=== PATIENT | female | born 1990 | race African-American/Black ===

== ENCOUNTER 2017-08-10 20:16 | Emergency (ER) | payer OTHER ==
[~2017-08-10] VITALS: Ht 170.2 cm; Wt 77.1 kg
[~2017-08-10 20:16] MED LIST: IBUPROFEN 200200 M1 PO; MEDROL DOSPAK21 TA1 PO
[2017-08-10] MEDS ORDERED: NOHOMEMEDICATIONS (20:38)
[2017-08-10 22:43] LABS: ABSOLUTE NEUTROPHILS 3.4 thou/uL (1.4-8.2); BASOPHILS 0.9 % (0.0-2.0); EOSINOPHILS 4.8 % (0.0-3.0); HEMOGLOBIN 12.4 gm/dL (12.0-15.0); LYMPHOCYTES 29.9 % (24.0-44.0); MCH 30.8 pg (26.0-34.0); MCHC 34.5 g/dL (28.0-37.0); MCV 89.1 fL (80.0-100.0); PLATELET COUNT 170 thou/uL (150-400); POLYS 54.4 % (36.0-66.0); RBC 4.04 mil/uL (4.20-5.00); RDW 12.6 % (10.5-14.5); WBC 6.3 thou/uL (4.0-11.0)
[2017-08-10 22:50] LABS: CALCIUM 8.7 mg/dL (8.5-10.1); POTASSIUM 3.9 mmol/L (3.5-5.1)
[2017-08-10 23:32] LABS: URINE BILIRUBIN NEGATIVE (Negative); URINE BLOOD NEGATIVE (Negative); URINE CLARITY CLEAR; URINE COLOR YELLOW; URINE GLUCOSE-RANDOM* NEGATIVE (Negative); URINE KETONES TRACE (Negative); URINE NITRITE-REFLEX NEGATIVE (Negative); URINE PROTEIN (DIPSTICK) NEGATIVE (Negative); URINE SPECIFIC GRAVITY 1.025 (1.005-1.035)
[2017-08-10 23:35] LABS: URINE LEUKOCYTES-REFLEX TRACE (Negative)
[2017-08-11] MEDS ORDERED: MOBIC15 MG PO (00:35)
[2017-08-11 00:50] VITALS: BP 114/67
[2017-08-14 05:09] LABS: NEISSERIA GONORRHEA-PCR Negative (Negative)
== END 2017-08-11 00:50 | disposition home or self-care (01) ==
LOC: ER 20:16
PROVIDERS: Emergency Medicine
DX: N83.209 Unspecified ovarian cyst, unspecified side (principal); J45.909 Unspecified asthma, uncomplicated; Z91.013 Allergy to seafood; Z91.010 Allergy to peanuts

== ENCOUNTER 2020-07-11 08:26 | Emergency (ER) | payer BC, OTHER ==
[~2020-07-11] VITALS: Ht 170.2 cm; Wt 94.3 kg
[~2020-07-11 08:26] MED LIST changes: +MOBIC15 MG PO; +NOHOMEMEDICATIONS
[2020-07-11 10:07] LABS: ABSOLUTE NEUTROPHILS 5.3 thou/uL (1.4-8.2); BASOPHILS 0.5 % (0.0-2.0); EOSINOPHILS 0.9 % (0.0-3.0); HEMATOCRIT 36.3 % (37.0-47.0); HEMOGLOBIN 12.4 gm/dL (12.0-15.0); LYMPHOCYTES 19.9 % (24.0-44.0); MCH 30.2 pg (26.0-34.0); MCHC 34.1 g/dL (28.0-37.0); MCV 88.8 fL (80.0-100.0); MONOCYTES 8.2 % (1.0-8.0); PLATELET COUNT 183 thou/uL (150-400); POLYS 70.5 % (36.0-66.0); RBC 4.09 mil/uL (4.20-5.00); RDW 12.3 % (10.5-14.5); WBC 7.5 thou/uL (4.0-11.0)
[2020-07-11 10:14] LABS: CREATININE 0.8 mg/dL (0.6-1.0); POTASSIUM 3.8 mmol/L (3.5-5.1)
[2020-07-11 10:20] LABS: ALBUMIN 3.8 g/dL (3.4-5.0); TOTAL BILIRUBIN 0.3 mg/dL (0.2-1.0); TOTAL PROTEIN 7.7 g/dL (6.4-8.2)
[2020-07-11] MEDS ORDERED: CEPHALEXIN500 MG PO (10:41)
[2020-07-11 10:47] VITALS: BP 128/75
--- NOTE | 2020-07-11 12:56 | EKG ---
[address] [address] ELECTROCARDIOGRAM REPORT Name: EILEEN SPENCER Room #: [facility]#: [id number] Admission: 07/11/20 Attend Phys: Discharge: 07/11/20 Date of : [birth year] Report #: [id number] [facility] ED Test Date: 2020-07-11 Test Time: 09:12:38 Pat Name: EILEEN SPENCER Department: Room: Gender: F [employer]: KF : 1990 Requested By: Trinity Henderson Order Number: [id number] MD: Raghavendra Oropeza Measurements Intervals [place] Rate: 70 P: 68 MA: 149 QRS: 48 QRSD: 84 T: 53 QT: 411 QTc: 444 Interpretive Statements Sinus rhythm No previous ECG available for comparison Electronically Signed On 07-11-2020 12:56:45 CDT by Raghavendra Oropeza [email or web address] <ELECTRONICALLY SIGNED> By: Raghavendra Oropeza MD, [facility] 07/11/20 1256 0912 1 Raghavendra Oropeza MD, FACC /EPI
== END 2020-07-11 10:47 | disposition home or self-care (01) ==
LOC: ER 08:26
PROVIDERS: Emergency Medicine
DX: L03.114 Cellulitis of left upper limb (principal); R07.89 Other chest pain; J45.909 Unspecified asthma, uncomplicated; Z91.010 Allergy to peanuts; Z91.013 Allergy to seafood